=== PATIENT | female | born 1995 | race Caucasian/White ===

== ENCOUNTER 2019-05-13 07:59 | Emergency (ER) | payer SELFPAY ==
[2019-05-13] MEDS ORDERED: ALBUTEROL 2.5 MG/3 ML NEB SOL ONE (08:51)
[2019-05-13] MEDS ORDERED: IPRATROPIUM BROM 0.5MG/2.5ML ONE (08:51)
[2019-05-13] MEDS ORDERED: NA CHLORIDE 0.9% 1,000 ML ONE (08:52)
[2019-05-13 09:07] LABS: Absolute Lymphocytes (CBC) 0.6 K/uL (0.7-4.9); Basophils % 0.4 % (0-1.3); Hematocrit 39.7 % (36.0-45.0); Lymphocytes % 13.6 % (15.3-44.8); MPV 9.4 fL (7.6-11.3); RBC Red Blood Cell Count 4.94 M/uL (3.86-4.86)
[2019-05-13 09:18] LABS: Potassium 3.7 mmol/L (3.5-5.1)
--- NOTE | 2019-05-13 10:35 | ER ---
Nurse's Notes [facility] Name: Kenna Kaur Age: 24 yrs Sex: Female : 1995 Arrival Date: 05/13/2019 Time: 08:09 Bed 19 Private MD: None, None Diagnosis: Bronchitis, not specified as acute or chronic Presentation: 05/13 08:26 Presenting complaint: Patient states: jeanne been having this cough, congestion and fever hj for a week now and my phlegm is getting greenish in color;. Transition of care: patient was not received from another setting of care. Onset of symptoms was May 13, 2019. Risk Assessment: Do you want to hurt yourself or someone else? Patient reports no desire to harm self or others. Initial Sepsis Screen: Does the patient meet any 2 criteria? No. Patient's initial sepsis screen is negative. Does the patient have a suspected source of infection? No. Patient's initial sepsis screen is negative. Care prior to arrival: None. 08:26 Method Of Arrival: Ambulatory 08:26 Acuity: FAIZA 4 hj 09:04 Acuity: FAIZA 3 iw Triage Assessment: 08:27 General: Appears in no apparent distress. uncomfortable, Behavior is calm, cooperative, hj appropriate for age. Pain: Complains of pain in chest. 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 - Social history:: Smoking status: Patient/guardian denies using tobacco, Patient/guardian denies using alcohol. - Ebola Screening: : Patient negative for fever greater than or equal to 101.5 degrees Fahrenheit, and additional compatible Ebola Virus Disease symptoms Patient denies exposure to infectious person Patient denies travel to an Ebola-affected area in the 21 days before illness onset. Screenin:27 Abuse screen: Denies threats or abuse. Denies injuries from another. Nutritional hj screening: No deficits noted. Tuberculosis screening: No symptoms or risk factors identified. Fall Risk None identified. Assessment: 08:28 General: Appears in no apparent distress. uncomfortable, Behavior is calm, cooperative, hj appropriate for age. Pain: Complains of pain in chest. Neuro: Level of Consciousness is awake, alert, obeys commands, Oriented to person, place, time, situation, Appropriate for age. Cardiovascular: Capillary refill < 3 seconds Patient's skin is warm and dry. Respiratory: Reports pain with cough. GI: No signs and/or symptoms were reported involving the gastrointestinal system. : No signs and/or symptoms were reported regarding the genitourinary system. EENT: No signs and/or symptoms were reported regarding the EENT system. Derm: No signs and/or symptoms reported regarding the dermatologic system. Musculoskeletal: No signs and/or symptoms reported regarding the musculoskeletal system. 09:30 Reassessment: Patient and/or family updated on plan of care and expected duration. Pain hj level reassessed. Patient is alert, oriented x 3, equal unlabored respirations, skin warm/dry/pink. Patient states feeling better. 10:39 Reassessment: Patient and/or family updated on plan of care and expected duration. Pain hj level reassessed. Patient is alert, oriented x 3, equal unlabored respirations, skin warm/dry/pink. for D/C; Patient states feeling better. Patient states symptoms have improved. Vital Signs: 08:24 BP 102 / 68; Pulse 108; Resp 20; Temp 99.7(O); Pulse Ox 96% on R/A; Weight 81.65 kg; hj Height 5 ft. 6 in. (167.64 cm); 09:30 BP 110 / 80; Pulse 92; Resp 18; Pulse Ox 100% on R/A; hj 10:39 BP 104 / 70; Pulse 95; Resp 18; Pulse Ox 100% on R/A; hj 08:24 Body Mass Index 29.05 (81.65 kg, 167.64 cm) ED Course: 08:09 Patient arrived in ED. mr 08:09 None, None is Private Physician. mr 08:15 Cortney Dey FNP-C is PHCP. kb 08:15 Dat Bhagat MD is Attending Physician. kb 08:24 Jay Duffy, UNRULY is Primary Nurse. hj 08:27 Triage completed. hj 08:28 Arm band placed on left wrist. hj 08:28 Patient has correct armband on for positive identification. Bed in low position. Call hj light in reach. Side rails up X 1. 08:46 X-ray completed. Patient tolerated procedure well. Patient moved back from radiology. jb2 08:49 Chest Pa And Lat (2 Views) XRAY In Process Unspecified. EDMS 09:00 Initial lab(s) drawn, by me, sent to lab. Inserted saline lock: 20 gauge in right sr5 antecubital area, using aseptic technique. Blood collected. 10:52 No provider procedures requiring assistance completed. IV discontinued, intact, hj bleeding controlled, No redness/swelling at site. Pressure dressing applied. Administered Medications: 08:56 Drug: NS 0.9% 1000 ml Route: IV; Rate: 1000 ml; Site: right antecubital; hj 10:09 Follow up: IV Status: Completed infusion; IV Intake: 1000ml 08:56 Drug: DuoNeb (3:1) (2.5 mg - 0.5 mg) 3 ml Route: Nebulizer; hj 10:08 Follow up: Response: No adverse reaction; Wheezing diminished hj Intake: 10:09 IV: 1000ml; Total: 1000ml. Outcome: 10:33 Discharge ordered by . kb 10:53 Discharged to home ambulatory. hj 10:53 Condition: stable 10:53 Discharge instructions given to patient, Instructed on discharge instructions, follow up and referral plans. medication usage, Demonstrated understanding of instructions, follow-up care, medications, Prescriptions given X 2. 10:53 Patient left the ED. Signatures: Dispatcher [employer] EDID Cortney Dey, LIQUOR GALLERY OPERATORBreezy LIQUOR GALLERY OPERATOR-Barbara Aneta Cruz Jesse jb2 Lainey Cruz, RN Jay Lainez RN RN hj Resecker, Sam RN RN sr5
--- NOTE | 2019-05-13 10:36 | EDPHYS ---
Physician Documentation [facility] Name: Kenna Kaur Age: 24 yrs Sex: Female : 1995 Arrival Date: 05/13/2019 Time: 08:09 Bed 19 Private MD: None, None ED Physician Dat Bhagat HPI: 05/13 09:06 This 24 yrs old Female presents to ER via Ambulatory with complaints of Chest kb Congestion, Back Pain. 09:08 The patient or guardian reports cough, that is intermittent, described as mild, with no kb sputum. Onset: The symptoms/episode began/occurred 1 week(s) ago. Severity of symptoms: At their worst the symptoms were moderate, in the emergency department the symptoms are unchanged. Modifying factors: The symptoms are alleviated by nothing, the symptoms are aggravated by nothing. Associated signs and symptoms: Pertinent positives: fever, nausea. The patient has not experienced similar symptoms in the past. The patient has not recently seen a physician. Pt reports cough, fever, green mucus production and decreased appetite for a week. 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 - Social history:: Smoking status: Patient/guardian denies using tobacco, Patient/guardian denies using alcohol. - Ebola Screening: : Patient negative for fever greater than or equal to 101.5 degrees Fahrenheit, and additional compatible Ebola Virus Disease symptoms Patient denies exposure to infectious person Patient denies travel to an Ebola-affected area in the 21 days before illness onset. ROS: 09:06 ENT: Negative for injury, pain, and discharge, Neck: Negative for injury, pain, and kb swelling, Cardiovascular: Negative for chest pain, palpitations, and edema, Back: Negative for injury and pain, MS/Extremity: Negative for injury and deformity, Skin: Negative for injury, rash, and discoloration, Neuro: Negative for headache, weakness, numbness, tingling, and seizure. 09:06 Constitutional: Positive for chills, fatigue, fever, malaise, poor PO intake. 09:06 Respiratory: Positive for cough, with green sputum. 09:06 Abdomen/GI: Positive for nausea. 09: : Positive for flank pain. Exam: :06 Constitutional: This is a well developed, well nourished patient who is awake, alert, kb and in no acute distress. Head/Face: Normocephalic, atraumatic. ENT: Nares patent. No nasal discharge, no septal abnormalities noted. Tympanic membranes are normal and external auditory canals are clear. Oropharynx with no redness, swelling, or masses, exudates, or evidence of obstruction, uvula midline. Mucous membranes moist. Neck: Trachea midline, no thyromegaly or masses palpated, and no cervical lymphadenopathy. Supple, full range of motion without nuchal rigidity, or vertebral point tenderness. No Meningismus. Chest/axilla: Normal chest wall appearance and motion. Nontender with no deformity. No lesions are appreciated. Cardiovascular: Regular rate and rhythm with a normal S1 and S2. No gallops, murmurs, or rubs. Normal PMI, no JVD. No pulse deficits. Respiratory: Lungs have equal breath sounds bilaterally, clear to auscultation and percussion. No rales, rhonchi or wheezes noted. No increased work of breathing, no retractions or nasal flaring. Abdomen/GI: Soft, non-tender, with normal bowel sounds. No distension or tympany. No guarding or rebound. No evidence of tenderness throughout. Back: No spinal tenderness. No costovertebral tenderness. Full range of motion. Skin: Warm, dry with normal turgor. Normal color with no rashes, no lesions, and no evidence of cellulitis. MS/ Extremity: Pulses equal, no cyanosis. Neurovascular intact. Full, normal range of motion. Neuro: Awake and alert, GCS 15, oriented to person, place, time, and situation. Cranial nerves II-XII grossly intact. Motor strength 5/5 in all extremities. Sensory grossly intact. Cerebellar exam normal. Normal gait. Vital Signs: 08:24 BP 102 / 68; Pulse 108; Resp 20; Temp 99.7(O); Pulse Ox 96% on R/A; Weight 81.65 kg; hj Height 5 ft. 6 in. (167.64 cm); 09:30 BP 110 / 80; Pulse 92; Resp 18; Pulse Ox 100% on R/A; hj 10:39 BP 104 / 70; Pulse 95; Resp 18; Pulse Ox 100% on R/A; hj 08:24 Body Mass Index 29.05 (81.65 kg, 167.64 cm) hj MDM: 08:21 Patient medically screened. kb 09:06 Data reviewed: vital signs, nurses notes. Data interpreted: Pulse oximetry: on room air kb is 96 %. Interpretation: normal. 10:31 Counseling: I had a detailed discussion with the patient and/or guardian regarding: the kb historical points, exam findings, and any diagnostic results supporting the discharge/admit diagnosis, lab results, radiology results, the need for outpatient follow up, a family practitioner, to return to the emergency department if symptoms worsen or persist or if there are any questions or concerns that arise at home. 05/13 08:32 Order name: CBC with Diff; Complete Time: 09:10 kb 05/13 08:32 Order name: Basic Metabolic Panel; Complete Time: 09:34 kb 05/13 08:32 Order name: Chest Pa And Lat (2 Views) XRAY kb 05/13 10:09 Order name: Urine Dipstick--Ancillary (enter results) bd 05/13 10:09 Order name: Urine --Ancillary (enter results) bd 05/13 08:32 Order name: IV Start; Complete Time: 08:56 kb 05/13 08:32 Order name: Urine Dipstick-Ancillary (obtain specimen); Complete Time: 10:08 kb 05/13 08:32 Order name: Urine Test (obtain specimen); Complete Time: 10:08 kb Administered Medications: 08:56 Drug: NS 0.9% 1000 ml Route: IV; Rate: 1000 ml; Site: right antecubital; hj 10:09 Follow up: IV Status: Completed infusion; IV Intake: 1000ml 08:56 Drug: DuoNeb (3:1) (2.5 mg - 0.5 mg) 3 ml Route: Nebulizer; hj 10:08 Follow up: Response: No adverse reaction; Wheezing diminished hj Disposition: 13:24 Co-signature as Attending Physician, Dat Bhagat MD. rn Disposition: 05/13/19 10:33 Discharged to Home. Impression: Bronchitis, not specified as acute or chronic. - Condition is Stable. - Discharge Instructions: Acute Bronchitis, Njsi-kz-Hnuk, Viral Respiratory Infection, Byin-On-Mxfd. - Prescriptions for Prednisone 20 mg Oral Tablet - take 1 tablet by ORAL route once daily for 5 days; 5 tablet. Albuterol Sulfate 90 mcg/actuation - inhale 1-2 puff by INHALATION route every 4-6 hours; 1 Inhaler. - Medication Reconciliation Form, Thank You Letter, Antibiotic Education, Prescription Opioid Use form. - Follow up: Emergency Department; When: As needed; Reason: Worsening of condition. Follow up: Private Physician; When: 2 - 3 days; Reason: Recheck today's complaints, Continuance of care, Re-evaluation by your physician. Signatures: Dispatcher [employer] EDMS Cortney Dey, ROBERTO-C INSURANCE BUSINESS ANALYST-Dat Prince MD MD rn Joaquin, Henry, RN RN hj Corrections: (The following items were deleted from the chart) 10:53 10:33 05/13/2019 10:33 Discharged to Home. Impression: Bronchitis, not specified as hj acute or chronic. Condition is Stable. Forms are Medication Reconciliation Form, Thank You Letter, Antibiotic Education, Prescription Opioid Use. Follow up: Emergency Department; When: As needed; Reason: Worsening of condition. Follow up: Private Physician; When: 2 - 3 days; Reason: Recheck today's complaints, Continuance of care, Re-evaluation by your physician. kb
--- NOTE | 2019-05-13 11:05 | RAD REPORT ---
EXAM DESCRIPTION: RAD - Chest Pa And Lat (2 Views) - 05/13/2019 8:50 am CLINICAL HISTORY: Cough and congestion, fever COMPARISON: None. TECHNIQUE: PA and lateral views of the chest were obtained. FINDINGS: The lungs are normal volume. No focal dense mass or consolidation. No failure or volume ov erload. Patient does have patchy airspace opacities scattered throughout the right lung field and in the lower left lung field. In the acute clinical setting pneumonia is most likely. This pattern may r eflect mycoplasma or other atypical pneumonia. Heart size is normal and central vasculature is within normal limits. No pleural effusion or pneumot horax seen. No acute bony finding noted. No aortic abnormality. IMPRESSION: Patchy pneumonia changes are scattered in both lung hull possibly mycoplasma or other atypical pneumonia.
[2019-05-13 13:13] LABS: Urine Blood 3+ (NEG); Urine Glucose NEGATIVE (NEG); Urine Protein 1+ (NEG); Urine Specific Gravity 1.025 (1.005-1.030)
== END 2019-05-13 10:53 | disposition home or self-care (01) ==
LOC: ER 07:59
DX: J40 Bronchitis, not specified as acute or chronic (principal)
CPT/HCPCS: 36415; 71046; 80048; 81003; 81025; 85025; 94640; 96360; 99284; J7030

== ENCOUNTER 2022-08-31 03:27 | Inpatient (IN) | payer SELFPAY ==
[2022-08-30 10:03] LABS: Absolute Lymphocytes (CBC) 1.3 K/uL (0.7-4.9); Hematocrit 32.5 % (36.0-45.0); Lymphocytes % 14.9 % (15.3-44.8); MCV 78.3 fL (80-100); MPV 10.2 fL (7.6-11.3); RBC Red Blood Cell Count 4.14 M/uL (3.86-4.86)
[2022-08-30 10:14] LABS: Specific Gravity 1.017 (1.005-1.030); Urine Bacteria <20 /HPF (<20); Urine Bilirubin NEGATIVE (Negative); Urine Blood Negative (Negative); Urine Clarity Clear (Clear); Urine Color Light-Yellow (Yellow); Urine Glucose NEGATIVE (Negative); Urine Mucus Slight /HPF (None Seen); Urine Protein NEGATIVE (Negative); Urine RBC <5 /HPF (None Seen); Urine Urobilinogen Normal (Normal); Urine WBC Clump Occasional /HPF (None Seen); Urine pH 6.5 (5.0-7.0)
[2022-08-30 10:29] LABS: SARS-CoV-2 Antigen Rapid Res Negative (Negative)
--- NOTE | 2022-08-30 12:10 | PREOPHP ---
Date of Admission: 08/31/2022 History Of Present Illness: A 27-year-old, 7, para 2, for miscarriages, now at 38 weeks and 5 days and will be 39 weeks on Monday. Full preoperative counseling concerning procedure and poss ible complications including infection; blood loss; anesthetic complications; injury to bladder, du l, ureter; postoperative complications; clots in legs; pneumonia. The patient knows fully well this does not constitute all the possible problems that could occur during or following surgery and knows with each surgery the risks and complications are higher. Family History: The patient is adopted, therefore has no real family history. Past Surgical History: She has had 2 previous C-sections. Allergies: SHE HAS NO ALLERGIES. Medications: She has been taking vitamins. Social History: She does not smoke. Placenta on the first ultrasound was fundal. The patient did not wish to do an other ultrasound to l ook the placenta more carefully for accreta, but with a fundal placenta, I think we should be okay. Physical Examination: HEENT: Clear. Pupils equal, round, reactive to light and accommodation. Conjunctivae well perfused . No oral, lingual, or buccal lesions. Chest and Lungs: Clear. Heart: Without murmurs, thrills, heaves, or rubs. Breasts: Without masses on previous visits. Abdomen: Pendulous and large. The baby is vertex, but very high. The cervix is fingertip. Extremities: Clear without edema, cyanosis, or clubbing. Assessment And Plan: We will proceed with repeat section on Monday of this week. The apryl york further knows that I will be going out of town the next day and Dr. Marin will see her in the po stoperative period and dismiss her, and then she will come back to see me 1 week postop. She is Rh p ositive, immune to rubella, negative strep. NBC/MODL Voice ID: [id number]
[~2022-08-31 03:27] MED LIST: CEFAZOLIN 2 GM in NA CHLORIDE 0.9% 50 ML IVPB SCH; FAMOTIDINE 20 MG/2 ML VIAL IV SCH; METOCLOPRAMIDE 10 MG/2mL INJ IV SCH; NA CIT/CITRIC AC 30 ML ORAL UDC PO ONE; Ringers Lactate 1,000 ML IV PRN; Ringers Lactate 1,000 ML IV SCH
--- OUTSIDE RECORDS SUMMARY | 2022-08-31 03:29 | XMS REPORT | Continuity of Care Document ---
:1995 Author Organization [facility] t Address [address] [place] [address] Dr. Mccray [address] [place] [id number] Care Team Providers Name Role Phone Unavailable Unavailable Unavailable Problems This patient has no known problems. Allergies, Adverse Reactions, Alerts This patient has no known allergies or adverse reactions. Medications This patient has no known medications. Procedures This patient has no known procedures. Results This patient has no known results.
[2022-08-31 04:10] LABS: RPR (Rapid Plasma Reagin) NON-REACT (NON-REACT)
[2022-08-31 04:12] VITALS: BMI 40.3
[2022-08-31] MEDS ORDERED: OXYTOCIN/LR 20 UNIT/1,000 ML BAG IV SCH (05:00)
[2022-08-31] MEDS ORDERED: D5LR 1,000 ML with OXYTOCIN 20 UNIT IV SCH ×2 (05:00)
[2022-08-31 05:58] VITALS: O2SAT 100
[2022-08-31] MEDS ORDERED: ONDANSETRON 4 MG/2 ML VIAL IV ONE (06:18)
[2022-08-31] MEDS ORDERED: FENTANYL CITR 100 MCG/2 ML ONE (06:28)
[2022-08-31] MEDS ORDERED: CEFAZOLIN 2 GM in NA CHLORIDE 0.9% 50 ML IVPB SCH (06:30)
[2022-08-31] MEDS ORDERED: NA CIT/CITRIC AC 30 ML ORAL UDC PO ONE (06:30)
[2022-08-31] MEDS ORDERED: CEFAZOLIN SODIUM 1 GM/VIAL ONE (06:43)
[2022-08-31] MEDS ORDERED: NA CHLORIDE 0.9% 100 ML ONE (06:44)
[2022-08-31] MEDS ORDERED: METHYLERGONOVINE 0.2MG/ML AMP IM ONE (07:00)
[2022-08-31] MEDS ORDERED: CARBOPROST TROME 250 MCG/ML IM ONE (07:00)
[2022-08-31] MEDS ORDERED: Oxycodone HCl/Acetaminophen 1 TAB TAB PO PRN (08:32)
[2022-08-31] MEDS ORDERED: ONDANSETRON 4 MG/2 ML VIAL IV PRN (08:32)
[2022-08-31] MEDS ORDERED: ONDANSETRON 4 MG (ODT) TAB PO PRN (08:32)
[2022-08-31] MEDS ORDERED: IBUPROFEN 600 MG TAB PO PRN (08:32)
[2022-08-31] MEDS ORDERED: BISACODYL 10 MG RECTAL SUPP RC PRN (08:32)
[2022-08-31] MEDS ORDERED: DIPHENHYDRAMINE 25 MG TAB/CAP PO PRN (08:32)
[2022-08-31] MEDS ORDERED: KETOROLAC 30 MG/ML INJ IM PRN (08:32)
[2022-08-31] MEDS ORDERED: ACETAMINOPHEN 500 MG TAB PO PRN ×2 (08:32)
[2022-08-31] MEDS: OXYTOCIN/LR 20 UNIT/1,000 ML BAG IV SCH ×2 (10:30→23:50)
[2022-08-31] MEDS ORDERED: METOCLOPRAMIDE 10 MG/2mL INJ IV PRN (10:47)
--- NOTE | 2022-08-31 11:20 | OP ---
Surgeon: Ozzie Cobos MD Cleaners: Jez Leahy MD. Anesthesiologist: Dr. Blount. Indication: A 27-year-old 7, para 2, and 2 previous C-sections, for repeat . Infec tion; blood loss; anesthetic complications; injury to bladder, bowel, ureter; postoperative complicat ions; clots in legs; and pneumonia discussed. The patient knows fully well this does not constitute all the possible problems that could occur during or following surgery. Anesthesia: Spinal block anesthesia. Procedure In Detail: After prepping and draping, time-out was performed at this point. A Pfannensti el incision was created over the previous incision site. The incision was carried to the fascia. Th e fascia was incised and the incision carried transversely bilaterally. Anterior fascial plane was d eveloped with both blunt and sharp dissection. Rectus muscles were . Peritoneum had alread y been entered. Low transverse bladder flap developed. Low transverse uterine incision created. A 7-pound 15-ounce female was delivered without difficulty. Nuchal cord x1. Apgars 9 and 9. Cord blo od specimen obtained. Placenta removed manually. Uterus cleared of clot and blood and exteriorized. Cervical os dilated with ring clamp. Uterus closed with a running lock stitch of 1 chromic followe d by 4-5 stitches in the right angle for complete hemostasis. Estimated blood loss during the proced ure 750 cc approximately. Gutters cleared of clot and blood. Uterus replaced in the peritoneal cavi ty. Inspection again showed no further bleeding. Incision on the uterus checked again, no further b leeding. The rectus muscles were reapproximated using 0 Vicryl 2 interrupted sutures. The fascia wa s closed using PDS running from either angle to the midline. Subcutaneous tissue closed with 2-0 jeanine in. Cerrillos used for the skin. The patient had been given 2 g of Ancef for prophylaxis. Tolerated all procedures well, transferred back to her room in good condition. Final Diagnoses: Term intrauterine , repeat section, spinal block anesthesia, anem ia noted on admission and the patient knows that Dr. Marin will be taking over for me tomorrow morning and will be dismissing her. She knows to report to my office either tomorrow or Monday to make an a ppointment for next week for followup. NBC/MODL Voice ID: [id number] Report ID: [id number]
[2022-08-31] MEDS ORDERED: PROMETHAZINE INJ 25 MG/ML AMP IV PRN (11:51)
[2022-08-31] MEDS: D5LR 1,000 ML with OXYTOCIN 20 UNIT IV SCH ×2 (15:58)
[2022-08-31] MEDS ORDERED: CEFAZOLIN SODIUM 2 GM in NA CHLORIDE 0.9% 100 ML IVPB ONE (16:00)
[2022-08-31 16:37] LABS: Hematocrit 33.1 % (36.0-45.0)
[2022-09-01] MEDS: KETOROLAC 30 MG/ML INJ IV PRN ×2 (00:36→08:40)
[2022-09-01] MEDS: D5LR 1,000 ML with OXYTOCIN 20 UNIT IV SCH ×2 (06:26)
[2022-09-01] MEDS: Oxycodone HCl/Acetaminophen 1 TAB TAB PO PRN ×2 (13:23→17:46)
[2022-09-01 16:20] VITALS: BP 112/56; TEMP 98.1
--- NOTE | 2022-09-02 03:53 | DS ---
Date of Discharge: 09/01/2022 Final Discharge Diagnoses: 1.Intrauterine , 39 weeks of gestation, delivered. 2.Prior history of deliveries. 3.Single live . Hospital Course: Kenna Kaur is a 27-year-old white female, G3, now P3, at 39 weeks of , uneventful, and normal care is scheduled to have the surgery on August 31. Her repeat C -section was uneventful and unremarkable and she gave to a baby girl with scores of 9 and 9, weight 7 pounds 15 ounces. Her postop course was uneventful and unremarkable. I evaluated this patient. On postop day 1, her uterus was firm with a minimum amount of vaginal lochia and her abdome n was nondistended and soft with expected wound tenderness. She requested to go home early. Later o n, on postop day 1 evening I re-evaluated this patient prior to going home, patient was stable to be discharged. Therefore, she was discharged to go home. Condition was stable and postop ins tructions were all reviewed at the bedside with the patient and patient understood the followup plan. A prescription of Tylenol No.3 #20, 1-2 tabs p.o. q.4-6 hours p.r.n. for pain was given to her. GUILLERMO/FATMATA Voice ID: [id number] Report ID: [id number]
[2022-09-04 12:48] LABS: HBsAG Nonreactive (Nonreactive)
== END 2022-09-01 18:10 | disposition home or self-care (01) | DRG 788 ==
LOC: 2ND-WC 03:27
PROVIDERS: ADMIT Specialist; ATTEND Specialist
PROC: 10D00Z1 Extraction of Products of Conception, Low, Open Approach (ICD-10-PCS; principal; 2022-08-31 07:30)
DX: O34.211 Maternal care for low transverse scar from previous cesarean delivery (principal); O99.02 Anemia complicating childbirth; O69.81X0 Labor and delivery complicated by cord around neck, without compression, not applicable or unspecified; Z3A.39 39 weeks gestation of pregnancy; Z37.0 Single live birth; Z20.822 Contact with and (suspected) exposure to COVID-19
CPT/HCPCS: 36415; 81001; 85014; 85018; 85025; 86592; 86850; 86900; 86901; 87340; 87811; 88307; J0690; J2210; J2405; J2550; J2590; J2765; J3010; J7120; J7121